=== PATIENT | female | born 1995 | race Caucasian/White ===

== ENCOUNTER 2017-11-19 15:47 | Emergency (ER) | payer SELFPAY ==
[~2017-11-19] VITALS: Ht 162.6 cm; Wt 59.0 kg
[2017-11-19 16:25] VITALS: BP 92/65
[2017-11-19] MEDS ORDERED: Dexamethasone Elixir 0.25mg/2.5ml ORAL ONE (16:30)
[2017-11-19] MEDS ORDERED: PREDNISONE20 MG ORAL (16:37)
--- NOTE | 2017-11-19 16:43 | Emergency Room Report ---
History of Present Illness General Chief Complaint: Allergic Reaction Source: Patient Present Illness HPI Patient presents today with bee sting she sustained yesterday. She states that since she was initially signed by a [place] faces been swelling. The she states she woke up this morning and her eyes were swollen shut. Stated Benadryl prior to arrival with relief. Patient denies shortness of breath, difficulty swallowing or associated symptoms. She has no significant medical problems and denies tobacco, alcohol or drug use. Allergies: Coded Allergies: No Known Allergies (Unverified , 11/19/17) Patient History Last Menstrual Period: 10/02/17 Now: No Reviewed Nursing Documentation: PMH: Agreed; PSxH: Agreed Nursing Documentation-PMH Hx Asthma: Yes Review of Systems Skin: Reports: rash All Other Systems: negative except mentioned in HPI Physical Exam Vital Signs Date Time Temp Pulse Resp B/P (MAP) Pulse Ox O2 Delivery O2 Flow Rate FiO2 11/19/17 15:59 98.7 88 18 92/65 95 Room Air 98.8 Sp02 EP Interpretation: reviewed, normal General Appearance: no apparent distress, alert, GCS 15, non-toxic Head: normocephalic, atraumatic Eyes: bilateral eye normal inspection, bilateral eye PERRL ENT: hearing grossly normal, normal pharynx, no angioedema, normal voice, other - swelling in the central forehead and extending down to the eyes. No periorbital erythema. No evidence of infection. Neck: full range of motion, supple/symm/no masses Respiratory: chest non-tender, lungs clear, normal breath sounds, speaking full sentences Cardiovascular #1: regular rate, rhythm, no edema Cardiovascular #2: 2+ carotid (R), 2+ carotid (L), 2+ radial (R), 2+ radial (L) , 2+ dorsalis pedis (R), 2+ dorsalis pedis (L) Gastrointestinal: normal bowel sounds, non tender, soft, non-distended, no guarding, no rebound Rectal: deferred Genitourinary: normal inspection, no CVA tenderness Musculoskeletal: back normal, gait/station normal, normal range of motion, non- tender, calf tenderness Neurologic: alert, oriented x3, responsive, motor strength/tone normal, sensory intact, speech normal Psychiatric: judgement/insight normal, memory normal, mood/affect normal, no suicidal/homicidal ideation Reflexes: 3+ bicep (R), 3+ bicep (L), 3+ tricep (R), 3+ tricep (L), 3+ knee (R) , 3+ knee (L) Skin: normal color, no rash, warm/dry, well hydrated Lymphatic: no adenopathy Medical Decision Making PA Attestation Supervising physician is Dr. yu Reaction to Intervention: Improved Diagnostic Impression: Primary Impression: Allergic urticaria Additional Impression: Bee sting allergy ER Course Patient sound having allergic reaction to bee sting. She is given Decadron in the ED with improvement of symptoms on reevaluation. Patient is discharged to home with prednisone as instructed and follow-up with further evaluation and management. Patient understands and is agreeable with plan. Last Vital Signs Date Time Temp Pulse Resp B/P (MAP) Pulse Ox O2 Delivery O2 Flow Rate FiO2 11/19/17 16:25 98.8 18 92/65 95 Room Air 98.8 11/19/17 15:59 88 Status: improved Disposition: HOME, SELF-CARE Condition: Stable Scripts Prednisone* (PREDNISONE*) 20 Mg Tablet 40 MG ORAL DAILY for 4 Days, #20 TAB Prov: Aliza Solomon 11/19/17 Patient Instructions: Allergies Aliza Solomon Nov 19, 2017 16:42
[2017-11-19 20:05] VITALS: BP 92/65
== END 2017-11-19 18:00 | disposition home or self-care (01) ==
LOC: EMR 16:30
DX: L50.0 Allergic urticaria (principal); J45.909 Unspecified asthma, uncomplicated; T63.441A Toxic effect of venom of bees, accidental (unintentional), initial encounter; Y92.9 Unspecified place or not applicable
CPT/HCPCS: 99283